=== PATIENT | female | born 1945 | race Caucasian/White ===

== ENCOUNTER → 2019-07-22 | Outpatient (CLI) | payer MEDICARE, OTHER | END | disposition home or self-care (01) | LOC: RAH 12:53 | PROVIDERS: ATTEND Internal Medicine | DX: Z12.31 Encounter for screening mammogram for malignant neoplasm of breast (principal) | CPT/HCPCS: 77067 ==

== ENCOUNTER 2021-01-01 01:13 | Observation (INO) | payer OTHER ==
[~2021-01-01] VITALS: Ht 157.5 cm; Wt 95.4 kg
[2021-01-01] VITALS (10 sets, daily range): BP systolic 109–192; BP diastolic 50–170
[2021-01-01 01:42] LABS: BASOPHILS % (AUTO) 0.7 % (0.0-5.0); EOSINOPHILS % (AUTO) 0.3 % (0.0-8.0); HEMATOCRIT 42.3 % (36-48); LYMPHOCYTES % (AUTO) 9.8 % (21.0-51.0); MEAN CORPUSCULAR HEMOGLOBIN 29.3 pg (27.0-33.0); MEAN CORPUSCULAR HGB CONC 33.6 g/dL (32.0-36.0); MEAN CORPUSCULAR VOLUME 87.2 fL (79-99); MONOCYTES % (AUTO) 4.3 % (3.0-13.0); NEUTROPHILS % (AUTO) 84.5 % (40.0-77.0); PLATELET COUNT (AUTO) 270 K/uL (130-400); RED BLOOD CELL COUNT(AUTO) 4.85 MIL/uL (4.00-5.50); RED CELL DISTRIBUTION WIDTH 13.1 % (11.0-15.5); WHITE BLOOD COUNT (AUTO) 16.3 K/uL (4.8-10.8)
[2021-01-01 01:44] LABS: APPEARANCE,URINE Clear (CLEAR); BILIRUBIN,URINE Negative (NEGATIVE); COLOR,URINE Yellow (YELLOW); GLUCOSE, URINE (UA) Negative (NEGATIVE); KETONES,URINE 15 mg/dL (NEGATIVE); LEUKOCYTE ESTERASE ,URINE Small (NEGATIVE); NITRATE,URINE Negative (NEGATIVE); OCCULT BLOOD,URINE Nonhemolyzed Trace (NEGATIVE); PROTEIN,URINE POS 1+ mg/dL (NEGATIVE)
[2021-01-01 01:52] LABS: CREATININE 1.1 mg/dL (0.5-1.5); POTASSIUM 3.9 mmol/L (3.5-5.1)
[2021-01-01 01:56] LABS: ALBUMIN 4.2 g/dL (3.5-5.0); BILIRUBIN,TOTAL 0.5 mg/dL (0.2-1.0); TOTAL PROTEIN, SERUM 8.4 g/dL (6.0-8.3)
[2021-01-01 01:57] LABS: BACTERIA,URINE None Seen /HPF (None Seen); SQUAMOUS EPITHELIAL CELL,UR Moderate /HPF (0-2); WBC,URINE 0-1 /HPF (0-1)
[2021-01-01 01:58] LABS: TRANSITIONAL EPI CELLS,URINE Few /HPF (None Seen)
[2021-01-01] MEDS ORDERED: 0.9%NACL 1000ML 1,000 ML IV ONE (02:30)
[2021-01-01] MEDS ORDERED: MORPHINE 4 MG SYG IV ONE (02:30)
[2021-01-01] MEDS ORDERED: PIP/TAZ ZOSYN 3.375G 3.375 GM VIAL IVPB ONE (02:30)
[2021-01-01] MEDS ORDERED: ZOSYN 3.375GM+NS 50ML 50 ML IV ONE (02:30)
[2021-01-01] MEDS ORDERED: MORPHINE 2 MG SYG IV PRN (05:30)
[2021-01-01] MEDS ORDERED: DEXTROSE 50%-WATER 50 ML DISP.SYRIN IV PRN (05:30)
[2021-01-01] MEDS ORDERED: ONDANSETRON 4MG INJ IV PRN (05:30)
[2021-01-01] MEDS ORDERED: ACETAMINOPHEN 325 MG TAB PO PRN ×2 (05:30)
[2021-01-01] MEDS ORDERED: LABETALOL 20MG SYG IV PRN (05:30)
[2021-01-01] MEDS ORDERED: GLUCAGON 1MG KIT 1 MG ML IM PRN (05:30)
[2021-01-01] MEDS: 0.9%NACL 1000ML 1,000 ML IV SCH ×2 (05:53→17:39)
[2021-01-01] MEDS: INSULIN HUMULIN R 100 UNIT/ML 3ML SQ SCH ×4 (07:30→21:00)
[2021-01-01] MEDS: PANTOPRAZOLE 40 MG/VIAL IVP SCH ×2 (09:05→21:05)
[2021-01-01] MEDS ORDERED: HYDROMORPHONE 0.5 MG SYG (0.5MG/0.5ML) ONE (09:11)
[2021-01-01] MEDS: HYDROMORPHONE 1 MG INJ IV PRN ×2 (09:11→23:47)
[2021-01-01] MEDS: ZOSYN 3.375GM+NS 50ML 50 ML IV SCH ×2 (13:22→21:06)
[2021-01-01] MEDS ORDERED: KETOROLAC 15MG/ML VIAL (15MG/ML) IV ONE (17:00)
[2021-01-01] MEDS ORDERED: ALBUHFA IH (18:15)
[2021-01-01] MEDS ORDERED: LISI40TA9 PO (18:15)
[2021-01-01] MEDS ORDERED: LEVO75 PO (18:15)
[2021-01-01] MEDS ORDERED: SERT-439 PO (18:15)
[2021-01-01] MEDS ORDERED: TRAZ-253 PO (18:15)
[2021-01-01] MEDS ORDERED: HYDR12.54 PO (18:15)
[2021-01-01] MEDS ORDERED: ATOR10TA69 PO (18:15)
[2021-01-02] MEDS: ZOSYN 3.375GM+NS 50ML 50 ML IV SCH ×2 (03:42→13:34)
[2021-01-02 04:00] VITALS: BP 147/62
[2021-01-02 05:31] LABS: HEMATOCRIT 39.1 % (36-48); MEAN CORPUSCULAR HGB CONC 33.2 g/dL (32.0-36.0); MEAN CORPUSCULAR VOLUME 87.1 fL (79-99); RED BLOOD CELL COUNT(AUTO) 4.49 MIL/uL (4.00-5.50); RED CELL DISTRIBUTION WIDTH 13.5 % (11.0-15.5); WHITE BLOOD COUNT (AUTO) 19.8 K/uL (4.8-10.8)
[2021-01-02 05:43] LABS: CREATININE 1.2 mg/dL (0.5-1.5); POTASSIUM 3.7 mmol/L (3.5-5.1)
[2021-01-02] MEDS: INSULIN HUMULIN R 100 UNIT/ML 3ML SQ SCH ×3 (07:30→16:30)
[2021-01-02 08:00] VITALS: BP 130/109
[2021-01-02] MEDS: PANTOPRAZOLE 40 MG/VIAL IVP SCH (10:00)
[2021-01-02 12:00] VITALS: BP 128/57
[2021-01-02] MEDS ORDERED: ONDA4TAB4 PO (13:38)
[2021-01-02 16:00] VITALS: BP 137/66
[2021-01-02 20:00] VITALS: BP 157/67
== END 2021-01-02 21:40 | disposition home or self-care (01) ==
LOC: EDH 01:13 → EDHIP 05:04 → 3AH 06:02
PROVIDERS: ADMIT Internal Medicine Pulmonary Disease; ATTEND Internal Medicine Pulmonary Disease
DX: K81.0 Acute cholecystitis (principal); R63.0 Anorexia; I10 Essential (primary) hypertension; K82.8 Other specified diseases of gallbladder; E03.9 Hypothyroidism, unspecified; E66.9 Obesity, unspecified; I44.0 Atrioventricular block, first degree; E11.65 Type 2 diabetes mellitus with hyperglycemia; R16.0 Hepatomegaly, not elsewhere classified; K76.0 Fatty (change of) liver, not elsewhere classified; Z68.38 Body mass index [BMI] 38.0-38.9, adult; Z95.1 Presence of aortocoronary bypass graft; Z95.0 Presence of cardiac pacemaker; Z79.890 Hormone replacement therapy; Z79.899 Other long term (current) drug therapy
CPT/HCPCS: 36415 ×2; 71045; 74176; 76705; 78226; 80048; 80053; 81001; 82948 ×5; 83605; 83690; 84484; 85025; 85027; 87040 ×2; 93005; 96361; 96365; 96366 ×2; 96375; 96376 ×2; 97161; 99285; A9537; C9113 ×3; G0378 ×40; G8978; G8979; G8980; G8981; G8982; G8983; J1170 ×2; J1885; J2270; J2543 ×5; J7030